=== PATIENT | male | born 2000 | race Caucasian/White ===

== ENCOUNTER 2019-03-30 17:40 | Emergency (ER) | payer OTHER, BC ==
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
[2019-03-30] MEDS ORDERED: Sodium Chloride 0.9% 10 ML Syringe FLUSH PRN (18:44)
[2019-03-30] MEDS ORDERED: Iopamidol 755 Mg/ML 100 ML Bottle IV ONE (19:36)
== END 2019-03-30 21:16 | disposition home or self-care (01) ==
LOC: FB.ED 17:40
DX: S06.0X9A Concussion with loss of consciousness of unspecified duration, initial encounter (principal); V49.3XXA Car occupant (driver) (passenger) injured in unspecified nontraffic accident, initial encounter; Y92.481 Parking lot as the place of occurrence of the external cause
CPT/HCPCS: 36415; 70450; 71046; 71260; 72125; 72128; 74177; 80053; 81001; 83690; 85025; 85610; 99283; Q9967